=== PATIENT | male | born 1955 | race Two or more races ===

== ENCOUNTER 2018-04-26 10:15 | Day surgery (SDC) | payer OTHER | END 2018-04-26 14:50 | disposition home or self-care (01) | LOC: AMB-ENDOS 10:15 | DX: D12.8 Benign neoplasm of rectum (principal); K64.8 Other hemorrhoids ==

== ENCOUNTER 2019-05-16 08:15 | Day surgery (SDC) | payer OTHER | END 2019-05-16 12:05 | disposition home or self-care (01) | LOC: AMB-ENDOS 08:15 | DX: K63.5 Polyp of colon (principal); K57.30 Diverticulosis of large intestine without perforation or abscess without bleeding ==